=== PATIENT | male | born 1955 ===

== ENCOUNTER 2020-11-30 10:29 | Outpatient (CLI) | payer OTHER, SELFPAY | END 2020-11-30 10:30 | disposition home or self-care (01) | LOC: ANHCOVIDVC 10:29 | PROVIDERS: PCP Family Medicine | DX: Z23 Encounter for immunization (principal) | CPT/HCPCS: 0001A; 91300 ==

== ENCOUNTER 2020-12-21 10:24 | Outpatient (CLI) | payer OTHER, SELFPAY | END 2020-12-21 10:25 | disposition home or self-care (01) | LOC: ANHCOVIDVC 10:24 | PROVIDERS: PCP Family Medicine | DX: Z23 Encounter for immunization (principal) | CPT/HCPCS: 0002A; 91300 ==